=== PATIENT | male | born 1950 | race Caucasian/White ===

== ENCOUNTER 2019-06-14 04:27 | Emergency (ER) | payer OTHER, MEDICARE ==
[~2019-06-14] VITALS: Ht 188 cm; Wt 97.0 kg
--- NOTE | 2019-06-14 04:59 | EKG ---
[address] [address] Test Date: 2019-06-14 Test Time: 04:50:32 Pat Name: JOLENE BERNSTEIN Department: Room: Gender: M Show Host Or Hostess: : 1950 Requested By: MARY SAM Order Number: [id number] Reading MD: Measurements Intervals [place] Rate: 93 P: 37 [place]: 164 QRS: 98 QRSD: 128 T: 10 QT: 394 QTc: 493 Interpretive Statements SINUS RHYTHM RIGHTWARD AXIS RIGHT BUNDLE BRANCH BLOCK QRS(T) CONTOUR ABNORMALITY CONSIDER ANTEROLATERAL MYOCARDIAL DAMAGE ABNORMAL ECG RI6.01 No previous ECG available for comparison
[2019-06-14 05:18] LABS: BASO % 0 % (0-3); EOS % 0 % (0-3); HEMATOCRIT 46.7 % (39.0-53.0); LYMPH # 0.8 x10^3/uL (1.0-4.8); LYMPH % 10 % (24-48); MEAN CORPUSCULAR HEMOGLOBIN 31 pg (25-35); MEAN CORPUSCULAR HGB CONC 34 g/dL (31-37); MEAN CORPUSCULAR VOLUME 89 fL (79-100); MONO # 0.7 x10^3/uL (0.0-1.1); MONO % 8 % (0-9); NEUT # 6.5 x10^3uL (1.8-7.7); NEUT % 81 % (31-73); PLATELET COUNT 207 x10^3/uL (140-400); RED BLOOD COUNT 5.22 x10^6/uL (4.30-5.70); RED CELL DISTRIBUTION WIDTH 13.7 % (11.5-14.5)
[2019-06-14 05:27] LABS: CALCIUM 8.5 mg/dL (8.5-10.1); CREATININE 1.1 mg/dL (0.7-1.3); GFR 66.8; POTASSIUM 3.7 mmol/L (3.5-5.1)
--- NOTE | 2019-06-14 05:27 | PHYS DOC ---
Past History Past Medical History: High Cholesterol (MARY SAM DO) Past Surgical History: Appendectomy Additional Past Surgical Histo: left wrist, left ankle (MARY SAM DO) Smoking: Quit Greater Than 1 Year Alcohol Use: None Drug Use: None (MARY SAM DO) Adult General Chief Complaint Chief Complaint: SYNCOPE HPI HPI 69-year-old male presents with report of syncopal episode which occurred today while patient was on the toilet at approximately 0330. Patient had awoke to use restroom and had diarrhea and vomiting when episode occurred. Denies any pain, but reports had some "indigestion" which started yesterday. Denies chest pain. Denies abdominal pain. Denies known sick contacts or travel outside the [place]. Denies fever/chills. Patient reports he still feels nauseated at this time. (MARY SAM DO) Review of Systems Review of Systems Constitutional: Denies fever or chills; reports malaise Eyes: Denies redness or eye pain HENT: Denies nasal congestion or sore throat Respiratory: Denies cough or shortness of breath Cardiovascular: Denies chest pain or palpitations GI: Denies abdominal pain; reports nausea, vomiting, and diarrhea : Denies dysuria or hematuria Musculoskeletal: Denies back pain or joint pain Integument: Denies rash or skin lesions Neurologic: Denies headache, focal weakness or sensory changes; reports syncopal episode Complete systems were reviewed and found to be within normal limits, except as documented in this note. (MARY SAM DO) Current Medications Current Medications Current Medications Medications (Trade) Dose Ordered Sig/Jania Start Time Stop Time Status Last Admin Dose Admin Famotidine (Pepcid Vial) 20 mg 1X ONCE 06/14/19 05:15 06/14/19 05:16 UNV Ondansetron HCl (Zofran) 4 mg 1X ONCE 06/14/19 05:15 06/14/19 05:16 UNV Sodium Chloride 1,000 ml @ 1,000 mls/hr 1X ONCE 06/14/19 05:15 06/14/19 06:14 UNV (MARY SAM DO) Allergies Allergies Allergies Coded Allergies Type Severity Reaction Last Updated Verified No Known Allergies Allergy Unknown 06/14/19 Yes (MARY SAM DO) Physical Exam Physical Exam Constitutional: Well developed, well nourished, no acute distress, non-toxic appearance HENT: Normocephalic, atraumatic, oropharynx moist Eyes: PERRL, EOMI, conjunctiva normal, no discharge, no nystagmus Neck: Normal range of motion, no midline tenderness, supple Cardiovascular: Heart rate normal, regular rhythm Lungs & Thorax: Bilateral breath sounds clear to auscultation, no wheezing Abdomen: Soft, no tenderness, no guarding/rebound tenderness/distention Skin: Warm, dry, no erythema, no rash Extremities: No tenderness, ROM intact, no edema Neurologic: Alert and oriented X 3, normal motor function, normal sensory function, no focal deficits noted Psychologic: Affect normal, judgment normal (SAM,MARY R DO) Current Patient Data Vital Signs Vital Signs Date Time Temp Pulse Resp B/P (MAP) Pulse Ox O2 Delivery O2 Flow Rate FiO2 06/14/19 04:27 97.9 93 20 155/94 (114) 90 Room Air Lab Results Laboratory Tests Test 06/14/19 04:50 White Blood Count 8.0 x10^3/uL (4.0-11.0) Red Blood Count 5.22 x10^6/uL (4.30-5.70) Hemoglobin 16.0 g/dL (13.0-17.5) Hematocrit 46.7 % (39.0-53.0) Mean Corpuscular Volume 89 fL (79-100) Mean Corpuscular Hemoglobin 31 pg (25-35) Mean Corpuscular Hemoglobin Concent 34 g/dL (31-37) Red Cell Distribution Width 13.7 % (11.5-14.5) Platelet Count 207 x10^3/uL (140-400) Neutrophils (%) (Auto) 81 % (31-73) H Lymphocytes (%) (Auto) 10 % (24-48) L Monocytes (%) (Auto) 8 % (0-9) Eosinophils (%) (Auto) 0 % (0-3) Basophils (%) (Auto) 0 % (0-3) Neutrophils # (Auto) 6.5 x10^3uL (1.8-7.7) Lymphocytes # (Auto) 0.8 x10^3/uL (1.0-4.8) L Monocytes # (Auto) 0.7 x10^3/uL (0.0-1.1) Eosinophils # (Auto) 0.0 x10^3/uL (0.0-0.7) Basophils # (Auto) 0.0 x10^3/uL (0.0-0.2) (MARY SAM DO) EKG EKG @0450 NSR at 93bpm, NO ST elevation, RBBB @0528 NSR at 82bpm, NO ST elevation, RBBB (repeated after syncopal episode) (MARY SAM DO) Radiology/Procedures Radiology/Procedures [] (MARY SAM DO) Impressions: INDICATION: Syncope and weakness COMPARISON: None. TECHNIQUE: Axial CT images obtained through the head. One or more of the following individualized dose reduction techniques were utilized for this examination: 1. Automated exposure control; 2. Adjustment of the mA and/or kV according to patient size; 3. Use of iterative reconstruction technique. FINDINGS: High density along the falx asymmetric to the left measuring up to 3 mm in thickness posteriorly. Atrophic changes of the cerebellum. No midline shift. Suprasellar cistern is not effaced. Scattered foci of low density white matter. Bowing of nasal septum to the right. IMPRESSION: * High density along the left parafalcine region which can be seen with a small subdural hematoma. Report called to the emergency department at 6:15 AM on date of exam. Electronically signed by: Darius Gao MD (06/14/2019 6:21 AM) [id number] DICTATED AND SIGNED BY: DARIUS GAO MD DATE: 06/14/19620 CC: DAXA FRANCO MD; MARY SAM DO ~ INDICATION: Syncope COMPARISON: None. FINDINGS: Single view of chest obtained. Mild elevation left hemidiaphragm. Cardiac silhouette unremarkable. A definite focal consolidation is not seen. IMPRESSION: * No focal airspace consolidation or edema. Electronically signed by: Darius Gao MD (06/14/2019 6:09 AM) [id number] DICTATED AND SIGNED BY: DARIUS GAO MD DATE: 06/14/19608 CC: DAXA FRANCO MD; MARY SAM DO ~ (KYA TANG DO) Course & Med Decision Making Course & Med Decision Making Pertinent Labs and Imaging studies reviewed. (See chart for details) Patient presents status post syncopal episode while patient was on toilet. Reports associated nausea, vomiting, and diarrhea. Abdomen non-peritoneal. NIHSS 0. Twelve-lead EKG obtained with notation of right bundle-branch block. No prior EKG for comparison. Labs obtained.. IV fluid hydration provided. Nausea addressed. Patient with subsequent episode with attempt to get radiological imaging. Patient had been in a wheelchair going down the [place] when he suddenly felt ill and profusely vomited. Telemetry monitoring noted patient appeared to have second-degree AV block. Repeat 12-lead EKG unable to capture. CT head and Chest x-ray awaiting radiologic interpretation Labs partially pending. Sign out given to Dr. Tang for further evaluation and final disposition. Discussed findings and plan with patient, who acknowledges understanding and agreement. (MARY SAM DO) Course & Med Decision Making The patient's head CT does show a subdural hematoma along the falx on the left side greatest dimension is 3 mm. The patient was treated in the ER for his vomiting with Zofran. He has no further vomiting. He still feels a little dizzy and generally weak. I discussed options for transfer and he would prefer to go to [facility]. I spoke to the physician at [facility] and Dr. Hannah has accepted the patient for transfer. He will go by ambulance. (KYA TANG DO) Dragon Disclaimer Dragon Disclaimer This electronic medical record was generated, in whole or in part, using a voice recognition dictation system. (MARY SAM DO) Departure Departure: Impression: Primary Impression: Syncope Additional Impression: Subdural hematoma Disposition: XF SHT-TRM HOSP Condition: STABLE Referrals: DAXA FRANCO MD (PCP) NIHSS - ED NIH Stroke Scale: NIH Stroke Scale Response (Comments) Value Level of Consciousness: 0 Alert/Responsive 0 LOC Questions: 0 Answers both correctly 0 LOC Commands: 0 Performs both tasks 0 Best Gaze: 0 Normal 0 Visual: 0 No visual loss 0 Facial Palsy: 0 Normal, symmetrical 0 Motor - Left Arm 0 No drift 0 Motor - Right Arm 0 No drift 0 Motor - Left Leg 0 No drift 0 Motor: Right Leg 0 No drift 0 Limb Ataxia: 0 Absent 0 Sensory: 0 No loss 0 Best Language: 0 Normal 0 Dysathria: 0 Normal 0 Extinction and Inattention: 0 Normal 0 Total 0 Problem Qualifiers Primary Impression: Syncope Syncope type: unspecified Qualified Codes: R55 - Syncope and collapse MARY SAM DO Jun 14, 2019 05:27 KYA TANG DO Jun 14, 2019 06:47
[2019-06-14] MEDS ORDERED: ONDANSETRON PF 4 MG/2 ML VIAL. IVP ONE ×2 (05:30→07:30)
[2019-06-14] MEDS ORDERED: FAMOTIDINE 20 MG/2 ML VIAL IVP ONE (05:30)
[2019-06-14] MEDS ORDERED: IV NORMAL SALINE 1,000ML 1,000 ML IV ONE (05:30)
--- NOTE | 2019-06-14 05:36 | EKG ---
[address] [address] Test Date: 2019-06-14 Test Time: 05:28:59 Pat Name: JOLENE BERNSTEIN Department: Room: Gender: M Kindergarten Instructional Assistant: : 1950 Requested By: MARY SAM Order Number: [id number] Reading MD: Measurements Intervals [place] Rate: 82 P: 40 RI: 172 QRS: 64 QRSD: 130 T: 13 QT: 408 QTc: 480 Interpretive Statements SINUS RHYTHM RIGHT BUNDLE BRANCH BLOCK QRS(T) CONTOUR ABNORMALITY CONSIDER ANTEROLATERAL MYOCARDIAL DAMAGE ABNORMAL ECG RI6.01 No previous ECG available for comparison
[2019-06-14 05:47] LABS: ALBUMIN/GLOBULIN RATIO 1.4 (1.0-1.7); TOTAL BILIRUBIN 0.8 mg/dL (0.2-1.0); TOTAL PROTEIN 6.8 g/dL (6.4-8.2)
--- NOTE | 2019-06-14 06:12 | RAD ---
INDICATION: Syncope COMPARISON: None. FINDINGS: Single view of chest obtained. Mild elevation left hemidiaphragm. Cardiac silhouette unremarkable. A definite focal consolidation is not seen. IMPRESSION: * No focal airspace consolidation or edema. Electronically signed by: Shahbaz Grullon MD (06/14/2019 6:09 AM) [id number]
--- NOTE | 2019-06-14 06:24 | RAD ---
INDICATION: Syncope and weakness COMPARISON: None. TECHNIQUE: Axial CT images obtained through the head. One or more of the following individualized dose reduction techniques were utilized for this examination: 1. Automated exposure control; 2. Adjustment of the mA and/or kV according to patient size; 3. Use of iterative reconstruction technique. FINDINGS: High density along the falx asymmetric to the left measuring up to 3 mm in thickness posteriorly. Atrophic changes of the cerebellum. No midline shift. Suprasellar cistern is not effaced. Scattered foci of low density white matter. Bowing of nasal septum to the right. IMPRESSION: * High density along the left parafalcine region which can be seen with a small subdural hematoma. Report called to the emergency department at 6:15 AM on date of exam. Electronically signed by: Shahbaz Grullon MD (06/14/2019 6:21 AM) [id number]
[2019-06-14 06:28] LABS: INFLUENZA A PATIENT NEGATIVE (NEGATIVE); INFLUENZA B PATIENT NEGATIVE (NEGATIVE)
[2019-06-14 07:48] VITALS: BP 154/95
== END 2019-06-14 07:49 | disposition short-term general hospital (02) ==
LOC: ER 04:27
DX: S06.5X9A Traumatic subdural hemorrhage with loss of consciousness of unspecified duration, initial encounter (principal); R55 Syncope and collapse; R19.7 Diarrhea, unspecified; R11.2 Nausea with vomiting, unspecified; E78.00 Pure hypercholesterolemia, unspecified; Z87.891 Personal history of nicotine dependence; W18.39XA Other fall on same level, initial encounter; Y93.89 Activity, other specified; Y92.89 Other specified places as the place of occurrence of the external cause; Y99.8 Other external cause status
CPT/HCPCS: 36415; 70450; 71045; 80053; 82553; 83605; 83615; 83690; 83735; 83880; 84484; 85025; 85379; 85610; 85730; 87804; 93005; 96361; 96374; 96375; 96376; 99285; J2405; J3490; J7030